=== PATIENT | male | born 1980 | race American Indian/Alaskan Native ===

== ENCOUNTER 2016-12-06 11:55 | Emergency (ER) | payer SELFPAY ==
[2016-12-06 12:20] VITALS: BP 124/77
--- NOTE | 2016-12-06 16:41 | Emergency Department Report ---
ED ENT HPI - General Chief complaint: Skin/Abscess/Foreign Body Stated complaint: POSS INSECT BITE/INFECTION Time Seen by Provider: 12/06/16 16:23 Source: patient Mode of arrival: Ambulatory Limitations: No Limitations - History of Present Illness Initial comments: PT states he has had a rash on his chin x 1 week. PT states he woke up with a spot that looked like a burn. PT states he thought that he got a spider bite when working. PT also thought that maybe he got an STD. PT denies new sexual partner. PT states the first spot had drained pus and slowly got worse. pt states he used a steroid cream and he thinks it started to get worse. PT states the area started to dry out and get scabs when he started cleansing it with hydrogen peroxide. complaint: other (rash to chin ) Onset/Timin -: Gradual, week(s) Location: other (chin) Severity: mild Quality: burning Consistency: other (pain improved, now feels irritated ) Improves with: other (hydrogen peroxide ) Worsens with: medication (steroid cream ) Associated Symptoms: denies: fever, pain with swallowing, sore throat - Related Data Previous Rx's Medication Instructions Recorded Last Taken Type Cephalexin [Keflex] 500 mg PO Q6HR #28 capsule 12/06/16 Unknown Rx Sulfamethoxazole/Trimethoprim 1 each PO BID #14 tablet 12/06/16 Unknown Rx [Bactrim DS TAB] Allergies Allergy/AdvReac Type Severity Reaction Status Date / Time No Known Allergies Allergy Unverified 12/06/16 12:15 ED Dental HPI - General Chief complaint: Skin/Abscess/Foreign Body Stated complaint: POSS INSECT BITE/INFECTION Time Seen by Provider: 12/06/16 16:23 Source: patient Mode of arrival: Ambulatory Limitations: No Limitations - Related Data Previous Rx's Medication Instructions Recorded Last Taken Type Cephalexin [Keflex] 500 mg PO Q6HR #28 capsule 12/06/16 Unknown Rx Sulfamethoxazole/Trimethoprim 1 each PO BID #14 tablet 12/06/16 Unknown Rx [Bactrim DS TAB] Allergies Allergy/AdvReac Type Severity Reaction Status Date / Time No Known Allergies Allergy Unverified 12/06/16 12:15 ED Review of Systems ROS: Stated complaint: POSS INSECT BITE/INFECTION Other details as noted in HPI Comment: All other systems reviewed and negative Constitutional: denies: fever ENT: denies: ear pain, throat pain Gastrointestinal: denies: abdominal pain, nausea, vomiting Genitourinary: denies: dysuria, discharge, testicular pain, testicular mass Skin: rash, change in color ED Past Medical Hx - Past Medical History Previous Medical History?: No - Surgical History Past Surgical History?: No - Social History Smoking Status: Current Every Day Smoker Substance Use Type: Alcohol - Medications Home Medications: Home Medications Medication Instructions Recorded Confirmed Last Taken Type Cephalexin [Keflex] 500 mg PO Q6HR #28 capsule 12/06/16 Unknown Rx Sulfamethoxazole/Trimethoprim 1 each PO BID #14 tablet 12/06/16 Unknown Rx [Bactrim DS TAB] ED Physical Exam - General Limitations: No Limitations General appearance: alert, in no apparent distress - Head Head exam: Present: atraumatic, normocephalic, normal inspection - ENT ENT exam: Present: mucous membranes moist, TM's normal bilaterally, normal external ear exam, other (post nasal drainage ) - Neck Neck exam: Present: normal inspection, full ROM. Absent: tenderness, meningismus, lymphadenopathy, thyromegaly - Respiratory Respiratory exam: Present: normal lung sounds bilaterally. Absent: respiratory distress - Cardiovascular Cardiovascular Exam: Present: regular rate, normal rhythm, normal heart sounds - GI/Abdominal GI/Abdominal exam: Present: soft. Absent: tenderness - Extremities Exam Extremities exam: Present: normal inspection, full ROM - Back Exam Back exam: Present: normal inspection, full ROM - Neurological Exam Neurological exam: Present: alert, oriented X3 - Psychiatric Psychiatric exam: Present: normal affect, normal mood - Skin Skin exam: Present: warm, dry, rash, erythema, other (folliculitis to chin, + surrounding erythema. no vesicles noted, scabs noted, no active drainage no palpable abscess. ) ED Course Vital Signs 12/06/16 12:16 Temperature 98.4 F Pulse Rate 62 Respiratory 17 Rate Blood Pressure 124/77 O2 Sat by Pulse 98 Oximetry - Reevaluation(s) Reevaluation #1: 12/06/16 16:51 PT aware that rash currently looks like skin infection. pt advised to stop steroid cream. PT aware that I do not see any vesicles on today's exam but pt encourage to follow up for hsv testing. - Pulse Oximetry Interpretation Digit-Finger Initial Pulse Oximetry Readin Actions Taken: none ED Medical Decision Making - Differential Diagnosis abscess, folliculitis, hsv Critical care attestation.: If time is entered above; I have spent that time in minutes in the direct care of this critically ill patient, excluding procedure time. ED Disposition Clinical Impression: Folliculitis Cellulitis Qualifiers: Site of cellulitis: face Qualified Code(s): L03.211 - Cellulitis of face Disposition: DISCHARGED TO HOME OR SELFCARE Is pt being admited?: No Does the pt Need Aspirin: No Condition: Stable Instructions: Folliculitis (ED) Additional Instructions: Follow up with the health dept for hsv testing Prescriptions: Cephalexin [Keflex] 500 mg PO Q6HR #28 capsule Sulfamethoxazole/Trimethoprim [Bactrim DS TAB] 1 each PO BID #14 tablet Referrals: PRIMARY CAREMD [Primary Care Provider] - 3-5 Days TINO PALACIOS MD [Staff Physician] - 3-5 Days [facility] [Outside] - 3-5 Days [facility] [Outside] - 3-5 Days Forms: Work/School Release Form(ED) Time of Disposition: 16:41
== END 2016-12-06 17:08 | disposition home or self-care (01) ==
LOC: ED 11:55
DX: L03.211 Cellulitis of face (principal); L73.9 Follicular disorder, unspecified; F17.200 Nicotine dependence, unspecified, uncomplicated
CPT/HCPCS: 99282

== ENCOUNTER 2022-02-03 21:23 | Inpatient (IN) | payer SELFPAY ==
[2022-02-03] MEDS ORDERED: IBUPROFEN 600 MG TAB PO ONE (21:42)
[2022-02-04] MEDS ORDERED: ACETAMINOPHEN 500 MG TAB PO ONE (06:58)
[2022-02-04] MEDS ORDERED: HYDROmorphone 1 MG/1 ML INJ IV ONE (08:21)
[2022-02-04] MEDS ORDERED: ONDANSETRON 4 MG/2 ML INJ IV ONE (08:21)
--- NOTE | 2022-02-04 08:22 | Emergency Department Report ---
ED General Adult HPI - General Chief complaint: Fever Stated complaint: CHEST PAIN AND SOB Time Seen by Provider: 02/04/22 07:59 Source: patient Mode of arrival: Wheelchair Limitations: No Limitations - History of Present Illness Initial comments: Patient presents with complaints of right lower chest/right upper abdominal pain x 2 days, sharp, radiating to his R back, 8/10, not worsened or relieved by anything. Endorses SOB, palpitations. Denies diaphoresis, leg swelling, pain in his calves, recent travel, immobilization, surgery, hospitalization, sex HRT use. Endorses nausea, non bloody, non bilious vomiting. Last BM was yesterday and formed. Endorses flatulence. Denies dysuria, frequency, urgency. Patient is a smoker Severity scale (0 -10): 8 - Related Data Previous Rx's Medication Instructions Recorded Last Taken Type Sulfamethoxazole/Trimethoprim 1 each PO BID #14 tablet 12/06/16 Unknown Rx [Bactrim DS TAB] cephALEXin [Keflex] 500 mg PO Q6HR #28 capsule 12/06/16 Unknown Rx Allergies Allergy/AdvReac Type Severity Reaction Status Date / Time No Known Allergies Allergy Unverified 12/06/16 12:15 ED Review of Systems ROS: Stated complaint: CHEST PAIN AND SOB Other details as noted in HPI Comment: All other systems reviewed and negative Constitutional: denies: chills, fever ED Past Medical Hx - Past Medical History Previous Medical History?: No - Social History Smoking Status: Unknown if ever smoked - Medications Home Medications: Home Medications Medication Instructions Recorded Confirmed Last Taken Type Sulfamethoxazole/Trimethoprim 1 each PO BID #14 tablet 12/06/16 Unknown Rx [Bactrim DS TAB] cephALEXin [Keflex] 500 mg PO Q6HR #28 capsule 12/06/16 Unknown Rx ED Physical Exam - General Limitations: No Limitations General appearance: alert, other (in acute pain) - Head Head exam: Present: atraumatic, normocephalic - Eye Eye exam: Present: PERRL, EOMI - ENT ENT exam: Present: mucous membranes moist, other (airway patent) - Neck Neck exam: Present: other (supple; no JVD) - Respiratory Respiratory exam: Present: other (fair air entry, prolonged expiratory phase, diffuse quiet expiratory wheezes, no use of accessory muscles of respiration) - Cardiovascular Cardiovascular Exam: Present: regular rate. Absent: rubs, gallop - GI/Abdominal GI/Abdominal exam: Present: other (soft; tender to palpation in epigastric region and RUQ; no involuntary guarding or rebound tenderness; positve Bergman's sign) - Extremities Exam Extremities exam: Present: other (no lower extremity edema; non tender [id number]; neg Jeaneth's sign bilaterally) - Back Exam Back exam: Present: full ROM. Absent: CVA tenderness (R), CVA tenderness (L) - Neurological Exam Neurological exam: Present: alert, oriented X3, CN II-XII intact. Absent: motor sensory deficit - Skin Skin exam: Present: warm, normal color ED Course Vital Signs 02/03/22 02/04/22 02/04/22 21:29 08:01 13:29 Temperature 102.8 F H 101.8 F H 99.5 F Pulse Rate 127 H 125 H 99 H Respiratory 18 22 Rate Blood Pressure 137/82 Blood Pressure 138/79 [Right] O2 Sat by Pulse 94 95 95 Oximetry ED Medical Decision Making - Lab Data Result diagrams: 02/04/22 08:29 02/04/22 08:29 Laboratory Tests 02/04/22 02/04/22 02/04/22 08:29 08:29 08:29 WBC 14.8 H RBC 5.31 H Hgb 15.6 H Hct 47.1 H MCV 89 MCH 29 MCHC 33 RDW 13.4 Plt Count 195 Lymph % (Auto) 5.1 L [place] % (Auto) 10.6 H Eos % (Auto) 0.1 Baso % (Auto) 0.3 Lymph # (Auto) 0.8 L [place] # (Auto) 1.6 H Eos # (Auto) 0.0 Baso # (Auto) 0.0 Seg Neutrophils % 83.9 H Seg Neutrophils # 12.4 H D-Dimer 995.34 H Sodium 133 L Potassium 3.4 L Chloride 101.2 Carbon Dioxide 18 L Anion Gap 17 BUN 11 Creatinine 0.9 Estimated GFR > 60 BUN/Creatinine Ratio 12 Glucose 115 H Lactic Acid Calcium 9.3 Total Bilirubin 1.40 H AST 30 ALT 95 H Alkaline Phosphatase 108 Troponin T < 0.010 Total Protein 7.9 Albumin 3.7 L Albumin/Globulin Ratio 0.9 Lipase SARS-CoV-2 (PCR) 02/04/22 02/04/22 02/04/22 08:29 08:29 10:00 WBC RBC Hgb Hct MCV MCH MCHC RDW Plt Count Lymph % (Auto) [place] % (Auto) Eos % (Auto) Baso % (Auto) Lymph # (Auto) [place] # (Auto) Eos # (Auto) Baso # (Auto) Seg Neutrophils % Seg Neutrophils # D-Dimer Sodium Potassium Chloride Carbon Dioxide Anion Gap BUN Creatinine Estimated GFR BUN/Creatinine Ratio Glucose Lactic Acid 1.00 Calcium Total Bilirubin AST ALT Alkaline Phosphatase Troponin T Total Protein Albumin Albumin/Globulin Ratio Lipase 8 L SARS-CoV-2 (PCR) Negative EKG #1 @ 21:34-> HYR 126, SR, nml HI, narrow QRS, LVH by R inb I, no significant ST elevations in contiguous leads CXR: R pleural effusion RUQ US: no acute abdominal process CTA chest: no PE; middle and lower lung infiltrates; large R pleural effusion CT abd/pelvis: no acute intra-abdominal process - Medical Decision Making Some orders were placed on 02/03/2022, under my name while I was not here. I did not request or give those verbal orders and IU am not responsible for their wanted or unwanted effects. Diff dz: likely 2/2 pneumonia with parapneumonic effusion and sepsis. PE, aortic dissection, biliary process ruled out. ACS, pyelonephritis unlikely. Received ibuprofen 600 mg PO x 1, dilaudid 1 mg IV x 1, zofran 4 mg IV x 1, levaquin 750 mg IV x 1, NS @ 125 ml/hr, solumedrol 125 mg IV x 1, albuterol 10 mg neb x 1, ipratropium 1 mg neb x 1. Critical care attestation.: If time is entered above; I have spent that time in minutes in the direct care of this critically ill patient, excluding procedure time. ED Disposition Clinical Impression: Sepsis, Pneumonia, Parapneumonic effusion, Reactive airway disease with acute exacerbation Disposition: ADMITTED INPATIENT Is pt being admited?: Yes Does the pt Need Aspirin: No Condition: Stable Instructions: Bacterial Pneumonia (ED) Time of Disposition: 13:36 (Patienty admitted to Dr. Montgomery. Sign out was given by me to the admitting physician. )
[2022-02-04] MEDS ORDERED: IPRATROPIUM 0.02% NEBU 2.5 ML IH STA (08:23)
[2022-02-04] MEDS ORDERED: ALBUTEROL 2.5 MG/3 ML NEBU IH STA (08:23)
[2022-02-04] MEDS ORDERED: methylPREDNISolone Sod Succinate 125 MG/2 ML INJ IV ONE (08:23)
[2022-02-04 08:47] LABS: Basophils % (Auto) 0.3 % (0.0-1.8); Eosinophils % (Auto) 0.1 % (0.0-4.3); Hematocrit 47.1 % (35.5-45.6); Hemoglobin 15.6 gm/dl (11.8-15.2); Lymphocytes # (Auto) 0.8 K/mm3 (1.2-5.4); Lymphocytes % (Auto) 5.1 % (13.4-35.0); Mean Corpuscular HGB Conc 33 % (32-34); Mean Corpuscular Volume 89 fl (84-94); Monocytes # (Auto) 1.6 K/mm3 (0.0-0.8); Monocytes % (Auto) 10.6 % (0.0-7.3); Platelet Count 195 K/mm3 (140-440); Red Blood Count 5.31 M/mm3 (3.65-5.03); Red Cell Distribution Width 13.4 % (13.2-15.2)
--- NOTE | 2022-02-04 08:58 | XRay Report ---
CHEST 1 VIEW INDICATION: Chest pain. COMPARISON: None FINDINGS: SUPPORT DEVICES: None. HEART: Within normal limits. LUNGS/PLEURA: Dense consolidation/effusion in the right lung base with minimal streaky left basilar a telectasis. ADDITIONAL FINDINGS: None. IMPRESSION: 1. Lung findings as above. Signer Name: John Madsen MD Signed: 02/04/2022 8:53 AM Workstation Name: [id number]
[2022-02-04 09:03] LABS: Alanine Aminotransferase 95 units/L (7-56); Albumin 3.7 g/dL (3.9-5); BUN/Creatinine Ratio 12; Blood Urea Nitrogen 11 mg/dL (9-20); Calcium 9.3 mg/dL (8.4-10.2); Hemolysis Index 9
--- NOTE | 2022-02-04 11:29 | Electrocardiograph Report ---
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
--- NOTE | 2022-02-04 12:12 | Ultrasound Report ---
LIMITED RUQ ABDOMINAL ULTRASOUND INDICATION: RUQ pain;. COMPARISON: No relevant prior imaging study available. FINDINGS: Pancreas: Poorly demonstrated. Abdominal Aorta: Normal size. IVC: No significant abnormality. Liver: The liver measures 15 cm in length. No significant abnormality. Normal hepatopedal blood flow in the main portal vein. Gallbladder: No significant abnormality. Bile ducts: No significant abnormality. Common bile duct measures 3 mm. Right kidney: No significant abnormality visualized.. Free fluid: None. Additional Findings: There is a trace right pleural effusion.. IMPRESSION: 1. No acute abnormality in the abdomen. 2. Trace right pleural effusion. Signer Name: John Madsen MD Signed: 02/04/2022 12:08 PM Workstation Name: [id number]
--- NOTE | 2022-02-04 14:21 | Cat Scan Report ---
CTA CHEST WITH CONTRAST INDICATION / CLINICAL INFORMATION: R sided chest pain; elevated [place]imer. TECHNIQUE: Axial CT images were obtained through the chest after injection of IV contrast. 3 plane [place] P and/or 3D reconstructions were produced. All CT scans at this location are performed using CT dose reduction for ALARA by means of automated exposure control. COMPARISON: None available. FINDINGS: Contrast bolus timing slightly suboptimal. The aorta is normal. Main pulmonary arteries appear patent . The more segmental and peripheral pulmonary arteries are not as well-seen. There is dense opacity w ithin the right mid and right lower lung with atelectasis density in right effusion. Visualized porti ons of the upper abdomen appear normal. Mild opacities in the left lower lung are noted as well. ADDITIONAL FINDINGS: None. UPPER ABDOMEN: No acute findings. SKELETAL STRUCTURES: No significant osseous abnormality. IMPRESSION: 1. No definite obstructing central PTE. Contrast bolus timing is suboptimal with some mixing of contr ast within the main pulmonary arteries and branches. Evaluation is limited by the bolus timing. 2. Right middle and right lower lung atelectasis/infiltrates with right effusion Signer Name: Clark Matos MD Signed: 02/04/2022 2:17 PM Workstation Name: [id number]
--- NOTE | 2022-02-04 14:27 | Cat Scan Report ---
CT ABDOMEN AND PELVIS WITH CONTRAST HISTORY: R sided abdominal pain. COMPARISON: None. TECHNIQUE: CT images of the abdomen and pelvis were obtained following administration of intravenous contrast. All CT scans at this location are performed using CT dose reduction for ALARA by means of automated exposure control. CONTRAST: 100 ml of intravenous contrast administered. FINDINGS: Lungs/bones: There is right lower lung infiltrate and atelectasis. Right effusion Abdomen/pelvis: The liver, spleen, adrenal glands, pancreas, gallbladder and upper GI tract appear n ormal. Bilateral kidneys appear normal. No bowel obstruction is identified. Appendix appears normal. No free fluid in the abdomen or pelvis. Portal vein is patent. No dominant adenopathy is seen. IMPRESSION: 1. Right lower lung infiltrate/atelectasis and effusion 2. No acute findings are seen in the abdomen or pelvis. Signer Name: Clark Matos MD Signed: 02/04/2022 2:22 PM Workstation Name: [id number]
[2022-02-04] MEDS ORDERED: SODIUM CHLORIDE 0.9% 1000 ML 1,000 ML IV ONE (14:29)
[2022-02-04] MEDS ORDERED: MORPHINE 2 MG/1 ML INJ IV PRN (15:41)
[2022-02-04] MEDS ORDERED: ONDANSETRON 4 MG/2 ML INJ IV PRN (15:41)
[2022-02-04] MEDS ORDERED: METOCLOPRAMIDE 10 MG/2 ML INJ IV PRN (15:41)
[2022-02-04] MEDS ORDERED: SODIUM CHLORIDE 0.9% 1000 ML 1,000 ML IV SCH (15:45)
--- NOTE | 2022-02-04 16:00 | History and Physical Report ---
History of Present Illness Date of examination: 02/04/22 Date of admission: 02/04/2022 Chief complaint: Right-sided chest pain for the last 2 to 3 days Some shortness of breath for the last 2 to 3 days History of present illness: 41-year-old -[place] male with no significant past medical history presents with 2 to 3 days of sharp right infra axillary pain more with inspiration. Also some shortness of breath. Also low-grade fever. Temperature in the emergency room 102 approximately. Patient has cough productive of mucoid sputum. No chills. No recent alcohol intake or passing out. - Past Medical History -- No -Surgical history --None. - Social History --Smoking Status: Yes -Family history -- HTN Review of Systems ROS: Constitutional fever present. HEENT no sore throat no post nasal drip no diplopia Neck no neck stiffness no lymph gland enlargement Chest and lungs shortness of breath and cough present. Right-sided chest pain present in the infra axillary region. Increases with inspiration. 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 Skin no rash no itching Psychiatric no depression no homicidal or suicidal tendencies Hematologic no lymphedema or bruising Endocrine no polydipsia no polyuria no cold intolerance no heat intolerance Medications and Allergies Allergies Allergy/AdvReac Type Severity Reaction Status Date / Time No Known Allergies Allergy Unverified 12/06/16 12:15 Home Medications Medication Instructions Recorded Confirmed Last Taken Type Sulfamethoxazole/Trimethoprim 1 each PO BID #14 tablet 12/06/16 Unknown Rx [Bactrim DS TAB] cephALEXin [Keflex] 500 mg PO Q6HR #28 capsule 12/06/16 Unknown Rx Active Meds: Active Medications Sodium Chloride (Nacl 0.9% 1000 Ml) 1,000 mls @ 125 mls/hr IV ONCE ONE Stop: 02/04/22 22:28 Exam - Constitutional Vitals: Temp Pulse Resp BP Pulse Ox 99.5 F 99 H 22 138/79 95 02/04/22 13:29 02/04/22 13:29 02/04/22 08:01 02/04/22 08:01 02/04/22 13:29 General appearance: Present: mild distress, well-nourished - EENT Eyes: Present: PERRL ENT: hearing intact, clear oral mucosa - Neck Neck: Present: supple, normal ROM - Respiratory Respiratory effort: normal Respiratory: right: diminished (Diminished air entry right infrascapular), bilateral: CTA - Cardiovascular Heart rate: 120 Rhythm: regular Heart Sounds: Present: S1 & S2. Absent: rub, click - Extremities Extremities: pulses symmetrical, No edema Peripheral Pulses: within normal limits - Abdominal General gastrointestinal: Present: soft, non-tender, non-distended, normal bowel sounds Male genitourinary: Present: normal - Integumentary Integumentary: Present: clear, warm, dry - Musculoskeletal Musculoskeletal: gait normal, strength equal bilaterally - Psychiatric Psychiatric: appropriate mood/affect, intact judgment & insight - Neurologic Neurologic: CNII-XII intact, moves all extremities - Allied Health Allied health notes reviewed: nursing, case management HEART Score - HEART Score Troponin: Troponin T < 0.010 ng/mL (0.00-0.029) 02/04/22 08:29 Results - Labs CBC & Chem 7: 02/04/22 08:29 02/04/22 08:29 Labs: Laboratory Last Values WBC 14.8 K/mm3 (4.5-11.0) H 02/04/22 08:29 RBC 5.31 M/mm3 (3.65-5.03) H 02/04/22 08:29 Hgb 15.6 gm/dl (11.8-15.2) H 02/04/22 08:29 Hct 47.1 % (35.5-45.6) H 02/04/22 08:29 MCV 89 fl (84-94) 02/04/22 08:29 MCH 29 pg (28-32) 02/04/22 08:29 MCHC 33 % (32-34) 02/04/22 08:29 RDW 13.4 % (13.2-15.2) 02/04/22 08:29 Plt Count 195 K/mm3 (140-440) 02/04/22 08:29 Lymph % (Auto) 5.1 % (13.4-35.0) L 02/04/22 08:29 [place] % (Auto) 10.6 % (0.0-7.3) H 02/04/22 08:29 Eos % (Auto) 0.1 % (0.0-4.3) 02/04/22 08:29 Baso % (Auto) 0.3 % (0.0-1.8) 02/04/22 08:29 Lymph # (Auto) 0.8 K/mm3 (1.2-5.4) L 02/04/22 08:29 [place] # (Auto) 1.6 K/mm3 (0.0-0.8) H 02/04/22 08:29 Eos # (Auto) 0.0 K/mm3 (0.0-0.4) 02/04/22 08:29 Baso # (Auto) 0.0 K/mm3 (0.0-0.1) 02/04/22 08: Seg Neutrophils % 83.9 % (40.0-70.0) H 02/04/22 08: Seg Neutrophils # 12.4 K/mm3 (1.8-7.7) H 02/04/22 08:29 D-Dimer 995.34 ng/mlDDU (0-234) H 02/04/22 08:29 Sodium 133 mmol/L (137-145) L 02/04/22 08:29 Potassium 3.4 mmol/L (3.6-5.0) L 02/04/22 08:29 Chloride 101.2 mmol/L (98-107) 02/04/22 08: Carbon Dioxide 18 mmol/L (22-30) L 02/04/22 08:29 Anion Gap 17 mmol/L 02/04/22 08:29 BUN 11 mg/dL (9-20) 02/04/22 08:29 Creatinine 0.9 mg/dL (0.8-1.3) 02/04/22 08:29 Estimated GFR > 60 ml/min 02/04/22 08:29 BUN/Creatinine Ratio 12 % 02/04/22 08: Glucose 115 mg/dL (75-100) H 02/04/22 08:29 Lactic Acid 1.00 mmol/L (0.7-2.0) 02/04/22 08:29 Calcium 9.3 mg/dL (8.4-10.2) 02/04/22 08:29 Total Bilirubin 1.40 mg/dL (0.1-1.2) H 02/04/22 08:29 AST 30 units/L (5-40) 02/04/22 08:29 ALT 95 units/L (7-56) H 02/04/22 08:29 Alkaline Phosphatase 108 units/L (35-129) 02/04/22 08:29 Troponin T < 0.010 ng/mL (0.00-0.029) 02/04/22 08:29 Total Protein 7.9 g/dL (6.3-8.2) 02/04/22 08:29 Albumin 3.7 g/dL (3.9-5) L 02/04/22 08:29 Albumin/Globulin Ratio 0.9 % 02/04/22 08:29 Lipase 8 units/L (13-60) L 02/04/22 08:29 SARS-CoV-2 (PCR) Negative (Negative) 02/04/22 10:00 Short CBC 02/04/22 Range/Units 08:29 WBC 14.8 H (4.5-11.0) K/mm3 Hgb 15.6 H (11.8-15.2) gm/dl Hct 47.1 H (35.5-45.6) % Plt Count 195 (140-440) K/mm3 BMP 02/04/22 08:29 Sodium 133 L Potassium 3.4 L Chloride 101.2 Carbon Dioxide 18 L BUN 11 Creatinine 0.9 Glucose 115 H Calcium 9.3 Cardiac Enzymes 02/04/22 Range/Units 08:29 Troponin T < 0.010 (0.00-0.029) ng/mL Liver Function 02/04/22 Range/Units 08:29 Total Bilirubin 1.40 H (0.1-1.2) mg/dL AST 30 (5-40) units/L ALT 95 H (7-56) units/L Alkaline Phosphatase 108 (35-129) units/L Albumin 3.7 L (3.9-5) g/dL Urine 02/04/22 Range/Units Unknown Urine Color [place] (Yellow) Urine pH 5.0 (5.0-7.0) Ur Specific [place] 1.031 H (1.003-1.030) Urine Protein 100 mg/dl (Negative) mg/dL Urine Glucose (UA) Neg (Negative) mg/dL Microbiology: Microbiology 02/04/22 08:29 Peripheral/Venous Blood Culture - Preliminary Culture in Progress 02/04/22 08:29 Peripheral/Venous Blood Culture - Preliminary Culture in Progress - Imaging and Cardiology EKG: report reviewed Chest x-ray: report reviewed CT scan - chest: report reviewed Imaging and Cardiology: EKG Sinus tachycardia No previous EKG available for comparison Heart rate of 124/min Chest x-ray Dense consolidation/left effusion in the right lung base with minimal streaky left basilar atelectasis Chest CTA No definite obstructing central pulmonary thromboembolism. Right middle and right lower lung atelectasis/infiltrates with right effusion. Right upper quadrant ultrasound Trace right pleural effusion Abdominal CAT scan Right lower lung infiltrate/atelectasis and effusion No acute findings were seen in the abdomen or pelvis Assessment and Plan Advance Directives: Yes (Full code) VTE prophylaxis?: Chemical Plan of care discussed with patient/family: Yes - Patient Problems (1) Systemic inflammatory response syndrome Current Visit: Yes Status: Acute Plan to address problem: Clinical picture and labs consistent with Sirs. Patient has temperature 102.8, elevated white blood cell count (2) Right lower lobe pneumonia Current Visit: Yes Status: Acute Plan to address problem: Patient has right lower lobe consolidation consistent with community-acquired pneumonia No aspiration pneumonia Patient initiated on IV Zithromax and IV Rocephin to cover atypicals atypicals DuoNebs as needed (3) Parapneumonic effusion Current Visit: Yes Status: Acute Plan to address problem: Patient may need thoracentesis We will follow-up on the x-rays Pulmonary consult requested (4) Hyponatremia Current Visit: Yes Status: Acute Plan to address problem: Mild IV normal saline for now (5) Hypokalemia Current Visit: Yes Status: Acute Plan to address problem: Potassium supplemented (6) Malnutrition Current Visit: Yes Status: Chronic Qualifiers: Protein-calorie malnutrition severity: mild Plan to address problem: Albumin of 3.7 Mild Dietary supplements (7) Transaminitis Current Visit: Yes Status: Acute Plan to address problem: Mild Should self resolve (8) Polycythemia due to fall in plasma volume Current Visit: Yes Status: Acute Plan to address problem: IV fluids for now (9) DVT prophylaxis Current Visit: Yes Status: Acute Plan to address problem: On heparin and GI prophylaxis (10) Advance care planning Current Visit: Yes Status: Acute Plan to address problem: Disease education conducted, care plan discussed, diagnosis discussed, prognosis discussed. Patient acknowledges understanding and agree with care plan. +30 minutes.
[2022-02-04 17:45] LABS: Bilirubin,Urine NEG (Negative); Blood,Urine MOD (Negative); Color,Urine Amber (Yellow)
[2022-02-04 17:54] LABS: Mucus,Urine 3+ /HPF; Sperm,Urine FEW /HPF (NP)
[2022-02-04] MEDS ORDERED: POTASSIUM CHLORIDE ER 20 MEQ TAB PO ONE (18:38)
[2022-02-04] MEDS: HEPARIN 5,000 UNIT/1 ML VIAL SUB-Q SCH ×2 (18:57→21:51)
[2022-02-04] MEDS: cefTRIAXone/NS 2 GM/100 ML 2 GM/100 ML BAG IV SCH (20:05)
[2022-02-04] MEDS: AZITHROMYCIN/NS 500 MG/250 ML 500 MG/250 ML BAG IV SCH (22:00)
[2022-02-05 05:10] LABS: Basophils % (Auto) 0.2 % (0.0-1.8); Hematocrit 40.7 % (35.5-45.6); Hemoglobin 13.5 gm/dl (11.8-15.2); Lymphocytes # (Auto) 0.6 K/mm3 (1.2-5.4); Lymphocytes % (Auto) 3.8 % (13.4-35.0); Mean Corpuscular HGB Conc 33 % (32-34); Mean Corpuscular Volume 89 fl (84-94); Monocytes # (Auto) 1.2 K/mm3 (0.0-0.8); Monocytes % (Auto) 7.2 % (0.0-7.3); Platelet Count 191 K/mm3 (140-440)
[2022-02-05 05:30] LABS: Alanine Aminotransferase 58 units/L (7-56); Albumin 3.6 g/dL (3.9-5); BUN/Creatinine Ratio 11; Blood Urea Nitrogen 12 mg/dL (9-20); Calcium 8.9 mg/dL (8.4-10.2); Hemolysis Index 1
[2022-02-05] MEDS: cefTRIAXone/NS 2 GM/100 ML 2 GM/100 ML BAG IV SCH (10:17)
[2022-02-05] MEDS: HEPARIN 5,000 UNIT/1 ML VIAL SUB-Q SCH ×2 (10:19→22:35)
--- NOTE | 2022-02-05 10:40 | Electrocardiograph Report ---
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
--- NOTE | 2022-02-05 11:38 | Progress Note ---
Assessment and Plan Assessment and plan: #Community-acquired pneumonia #Parapneumonic effusion #Sepsis secondary to pneumonia WBC 14.8--> 16.6 and heart rate 103 and was afebrile to 102.8 on admission Continue Rocephin 1 g daily and p.o. azithromycin 500 mg daily x5 days for community-acquired pneumonia. Pending thoracentesis and fluid examination of right pleural effusion Pulmonology consulted; pending recs #Elevated D-dimer D-dimer 995 CT angio chest unremarkable for pulmonary embolism. Possible inflammatory marker. Ordering bilateral lower extremity venous Dopplers to rule out DVT. #Nonanion gap metabolic acidosisimproving Bicarb 18--> 21 Likely secondary to infection in the setting of right pleural effusion. Continue to monitor. #Elevated transaminasesimproving ALT 95--> 58 Continue to monitor. No need for medical intervention at this time. #Hyponatremiaresolved Sodium 133--> 139 #Hypokalemiaresolved Potassium 3.4--> 3.6 #Mild protein caloric malnutrition Albumin 3.6 Starting dietary supplementation #Advanced care planning -Disease education conducted, care plan discussed, diagnoses discussed, prognosis discussed, and patient acknowledges understanding with care plan -Time: +30 min Disposition Plan: Continue medical management Total Time Spent with Patient (Minutes): 45 minutes History Interval history: No acute events overnight. Hospitalist Physical - Constitutional Vitals: Temp Pulse Resp BP Pulse Ox 98.4 F 103 H 19 132/73 99 02/05/22 05:32 02/05/22 05:32 02/05/22 05:32 02/05/22 05:32 02/05/22 08:46 General appearance: Present: no acute distress, well-nourished - EENT Eyes: Present: PERRL, EOM intact ENT: hearing intact, clear oral mucosa, dentition normal - Neck Neck: Present: supple, normal ROM - Respiratory Respiratory effort: normal Respiratory: bilateral: diminished (Right lower lobe.) - Cardiovascular Rhythm: regular Heart Sounds: Present: S1 & S2 - Extremities Extremities: no ischemia, pulses intact, pulses symmetrical, No edema, normal temperature, normal color, Full ROM Peripheral Pulses: within normal limits - Abdominal General gastrointestinal: soft, non-tender, non-distended, normal bowel sounds - Integumentary Integumentary: Present: clear, warm, dry - Psychiatric Psychiatric: appropriate mood/affect, intact judgment & insight, memory intact, cooperative - Neurologic Neurologic: CNII-XII intact, moves all extremities - Allied Health Allied health notes reviewed: nursing HEART Score - HEART Score Troponin: Troponin T < 0.010 ng/mL (0.00-0.029) 02/04/22 08:29 Results - Labs CBC & Chem 7: 02/05/22 04:06 02/05/22 04:06 Labs: Laboratory Last Values WBC 16.6 K/mm3 (4.5-11.0) H 02/05/22 04:06 RBC 4.60 M/mm3 (3.65-5.03) 02/05/22 04:06 Hgb 13.5 gm/dl (11.8-15.2) 02/05/22 04:06 Hct 40.7 % (35.5-45.6) D 02/05/22 04:06 MCV 89 fl (84-94) 02/05/22 04:06 MCH 29 pg (28-32) 02/05/22 04:06 MCHC 33 % (32-34) 02/05/22 04:06 RDW 13.0 % (13.2-15.2) L 02/05/22 04:06 Plt Count 191 K/mm3 (140-440) 02/05/22 04:06 Lymph % (Auto) 3.8 % (13.4-35.0) L 02/05/22 04:06 [place] % (Auto) 7.2 % (0.0-7.3) 02/05/22 04:06 Eos % (Auto) 0.0 % (0.0-4.3) 02/05/22 04:06 Baso % (Auto) 0.2 % (0.0-1.8) 02/05/22 04:06 Lymph # (Auto) 0.6 K/mm3 (1.2-5.4) L 02/05/22 04:06 [place] # (Auto) 1.2 K/mm3 (0.0-0.8) H 02/05/22 04:06 Eos # (Auto) 0.0 K/mm3 (0.0-0.4) 02/05/22 04:06 Baso # (Auto) 0.0 K/mm3 (0.0-0.1) 02/05/22 04:06 Seg Neutrophils % 88.8 % (40.0-70.0) H 02/05/22 04:06 Seg Neutrophils # 14.7 K/mm3 (1.8-7.7) H 02/05/22 04:06 D-Dimer 995.34 ng/mlDDU (0-234) H 02/04/22 08:29 Sodium 139 mmol/L (137-145) 02/05/22 04:06 Potassium 3.6 mmol/L (3.6-5.0) 02/05/22 04:06 Chloride 104.8 mmol/L (98-107) 02/05/22 04:06 Carbon Dioxide 21 mmol/L (22-30) L 02/05/22 04:06 Anion Gap 17 mmol/L 02/05/22 04:06 BUN 12 mg/dL (9-20) 02/05/22 04:06 Creatinine 1.1 mg/dL (0.8-1.3) 02/05/22 04:06 Estimated GFR > 60 ml/min 02/05/22 04:06 BUN/Creatinine Ratio 11 % 02/05/22 04:06 Glucose 130 mg/dL (75-100) H 02/05/22 04:06 Lactic Acid 1.00 mmol/L (0.7-2.0) 02/04/22 08:29 Calcium 8.9 mg/dL (8.4-10.2) 02/05/22 04:06 Total Bilirubin 0.40 mg/dL (0.1-1.2) 02/05/22 04:06 AST 13 units/L (5-40) 02/05/22 04:06 ALT 58 units/L (7-56) H 02/05/22 04:06 Alkaline Phosphatase 85 units/L (35-129) 02/05/22 04:06 Troponin T < 0.010 ng/mL (0.00-0.029) 02/04/22 08:29 Total Protein 7.0 g/dL (6.3-8.2) 02/05/22 04:06 Albumin 3.6 g/dL (3.9-5) L 02/05/22 04:06 Albumin/Globulin Ratio 1.1 % 02/05/22 04:06 Lipase 8 units/L (13-60) L 02/04/22 08:29 Urine Color [place] (Yellow) 02/04/22 Unknown Urine Turbidity Clear (Clear) 02/04/22 Unknown Urine pH 5.0 (5.0-7.0) 02/04/22 Unknown Ur Specific [place] 1.031 (1.003-1.030) H 02/04/22 Unknown Urine Protein 100 mg/dl mg/dL (Negative) 02/04/22 Unknown Urine Glucose (UA) Neg mg/dL (Negative) 02/04/22 Unknown Urine Ketones 20 mg/dL (Negative) 02/04/22 Unknown Urine Blood Mod (Negative) 02/04/22 Unknown Urine Nitrite Neg (Negative) 02/04/22 Unknown Urine Bilirubin Neg (Negative) 02/04/22 Unknown Urine Urobilinogen 4.0 mg/dL (<2.0) 02/04/22 Unknown Ur Leukocyte Esterase Neg (Negative) 02/04/22 Unknown Urine WBC (Auto) 7.0 /HPF (0.0-6.0) H 02/04/22 Unknown Urine RBC (Auto) 20.0 /HPF (0.0-6.0) 02/04/22 Unknown Urine Mucus 3+ /HPF 02/04/22 Unknown Urine Sperm Few /HPF (FILLING LAYER UP) 02/04/22 Unknown SARS-CoV-2 (PCR) Negative (Negative) 02/04/22 10:00 Microbiology: Microbiology 02/04/22 08:29 Peripheral/Venous Blood Culture - Preliminary Culture in Progress 02/04/22 08:29 Peripheral/Venous Blood Culture - Preliminary Culture in Progress [place]/IV: Voiding Method Toilet Active Medications - Current Medications Current Medications: Generic Name Dose Route Start Last Admin Trade Name Freq PRN Reason Stop Dose Admin Acetaminophen 650 mg 02/04/22 15:41 Acetaminophen 325 Mg Tab PO Q4H PRN Pain MILD(1-3)/Fever >100.5/MOTA Heparin Sodium (Porcine) 5,000 unit 02/04/22 16:00 02/05/22 10:19 Heparin 5,000 Unit/1 Ml Vial SUB-Q 5,000 unit Q12HR NATHAN Administration Azithromycin 500 mg in 250 mls @ 250 mls/hr 02/04/22 16:00 02/04/22 22:00 Zithromax/Ns IV 02/09/22 15:59 250 mls/hr Q24H NATHAN Administration Ceftriaxone Sodium 2 gm in 100 mls @ 200 mls/hr 02/04/22 16:00 02/05/22 10:17 Rocephin/Ns 2 Gm/100 Ml IV 02/09/22 15:59 200 mls/hr Q24HR NATHAN Administration Protocol Metoclopramide HCl 10 mg 02/04/22 15:41 Metoclopramide 10 Mg/2 Ml Inj IV Q6H PRN Nausea And Vomiting Morphine Sulfate 2 mg 02/04/22 15:41 02/04/22 20:30 Morphine 2 Mg/1 Ml Inj IV 2 mg Q4H PRN Administration Pain, Moderate (4-6) Ondansetron HCl 4 mg 02/04/22 15:41 Ondansetron 4 Mg/2 Ml Inj IV Q8H PRN Nausea And Vomiting Oxycodone/Acetaminophen 1 tab 02/04/22 15:41 Oxycodone /Acetaminophen 5-325mg Tab PO Q6H PRN Pain, Moderate (4-6) Sodium Chloride 10 ml 02/04/22 22:00 02/05/22 10:18 Sodium Chloride 0.9% 10 Ml Flush Syringe IV 10 ml BID NATHAN Administration Sodium Chloride 10 ml 02/04/22 15:41 Sodium Chloride 0.9% 10 Ml Flush Syringe IV PRN PRN LINE FLUSH
[2022-02-05] MEDS: AZITHROMYCIN/NS 500 MG/250 ML 500 MG/250 ML BAG IV SCH (16:00)
[2022-02-05] MEDS: oxyCODONE /ACETAMINOPHEN 5-325MG TAB PO PRN (17:26)
[2022-02-06 05:32] LABS: Basophils % (Auto) 0.2 % (0.0-1.8); Eosinophils % (Auto) 0.1 % (0.0-4.3); Hematocrit 41.4 % (35.5-45.6); Hemoglobin 13.5 gm/dl (11.8-15.2); Lymphocytes # (Auto) 1.9 K/mm3 (1.2-5.4); Lymphocytes % (Auto) 17.2 % (13.4-35.0); Mean Corpuscular HGB Conc 33 % (32-34); Mean Corpuscular Volume 89 fl (84-94); Monocytes # (Auto) 1.1 K/mm3 (0.0-0.8); Monocytes % (Auto) 9.9 % (0.0-7.3); Platelet Count 200 K/mm3 (140-440); Red Blood Count 4.65 M/mm3 (3.65-5.03); Red Cell Distribution Width 13.3 % (13.2-15.2)
[2022-02-06 05:52] LABS: BUN/Creatinine Ratio 16; Blood Urea Nitrogen 14 mg/dL (9-20); Calcium 8.8 mg/dL (8.4-10.2); Hemolysis Index 1
[2022-02-06] MEDS ORDERED: POTASSIUM CHLORIDE ER 20 MEQ TAB PO NR (08:00)
[2022-02-06] MEDS: cefTRIAXone/NS 2 GM/100 ML 2 GM/100 ML BAG IV SCH (09:50)
[2022-02-06 10:04] LABS: INR 1.03 (0.87-1.13)
[2022-02-06] MEDS: HEPARIN 5,000 UNIT/1 ML VIAL SUB-Q SCH ×2 (11:53→22:26)
[2022-02-06] MEDS ORDERED: LIDOCAINE (1%) 10 MG/1 ML VIAL 20 ML MDV ONE (14:07)
--- NOTE | 2022-02-06 15:59 | XRay Report ---
CHEST 1 VIEW INDICATION / CLINICAL INFORMATION: POST THORACENTSIS STUDY TIME: 1533 COMPARISON: 02/04/2022 FINDINGS: SUPPORT DEVICES: None HEART / MEDIASTINUM: No significant abnormality. LUNGS / PLEURA: Right pleural effusion is again seen and appears mildly more prominent. Atelectasis a nd infiltrate in the right base. Mildly worse. Left lung field is clear. No pneumothorax. ADDITIONAL FINDINGS: No significant additional findings. Signer Name: Sae Dee MD Signed: 02/06/2022 3:54 PM Workstation Name: [id number]
[2022-02-06] MEDS: AZITHROMYCIN/NS 500 MG/250 ML 500 MG/250 ML BAG IV SCH (16:02)
[2022-02-06] MEDS: oxyCODONE /ACETAMINOPHEN 5-325MG TAB PO PRN (17:16)
--- NOTE | 2022-02-06 17:22 | Ultrasound Report ---
ATTEMPTED ULTRASOUND-GUIDED LEFT THORACENTESIS INDICATION: Pneumonia, small pleural effusion CT, requested laboratory evaluation of fluid COMPARISON: CTA chest 02/04/2022 Consent: Procedure was discussed at length with the patient in advance. Possible risks and benefits w ere discussed including pneumothorax, bleeding, and infection. Opportunity for questions was given. P atlakia reported no pertinent allergies and is not on anticoagulant therapy. Patient gave informed con sent to the procedure. PROCEDURE: Timeout was performed. In a sitting position and with a posterior approach, ultrasound was used to localize loculated pleural fluid in the mid right posterior chest. There appear to be multip le loculations and the largest was selected though this is still a small collection. Site was prepare d and procedure was performed with aseptic technique and generous local anesthesia with 1% lidocaine. . Because of the small collection, only a diagnostic thoracentesis was attempted using a 22-gauge sp inal needle. The needle was directed into the appropriate depth with aspiration attempted but despite several attempts including use of ultrasound guidance no fluid of significance could be withdrawn. P rocedure was then terminated. Post procedure chest x-ray was then performed showing no pneumothorax o r other obvious complication. Patient tolerated the procedure well and was discharged to the floor i n good condition. Complications: No significant complications occurred. Summary: Attempted but ultimately unsuccessful ultrasound-guided left thoracentesis. I suspect the fl uid is too thick for aspiration through a thin needle and larger needle size was felt prohibited due to the small size of the available loculated collection. If volume of pleural fluid increases, this c ould be attempted again. Signer Name: Sae Dee MD Signed: 02/06/2022 5:18 PM Workstation Name: [id number]
[2022-02-06] MEDS: ACETAMINOPHEN 325 MG TAB PO PRN (22:30)
[2022-02-07] MEDS: oxyCODONE /ACETAMINOPHEN 5-325MG TAB PO PRN ×3 (00:26→15:41)
[2022-02-07 06:26] LABS: BUN/Creatinine Ratio 11; Blood Urea Nitrogen 10 mg/dL (9-20); Calcium 8.8 mg/dL (8.4-10.2); Hemolysis Index 3
[2022-02-07] MEDS: cefTRIAXone/NS 2 GM/100 ML 2 GM/100 ML BAG IV SCH (09:02)
[2022-02-07] MEDS: HEPARIN 5,000 UNIT/1 ML VIAL SUB-Q SCH (09:03)
--- NOTE | 2022-02-07 12:35 | Consultation ---
History of Present Illness Consult date: 02/07/22 Requesting physician: NEREIDA BROWN - History of present illness History of present illness: This is a 41-year-old male patient admitted with shortness of breath fever chills and elevated white count 16,000. Chest x-ray is positive for an empyema. CT scan of the chest also supports an empyema of the right side potential loculations are visualized. Attempted drainage with IR and ultrasound guidance failed. Consultation at this time is for a larger bore chest tube for potential drainage of thick purulent material. Patient notes that he is feeling better at this time. He notes that he has had a prior episode approximately a month ago while he was in [place] with the same chest pain shortness of breath that cleared spontaneously without being seen by a doctor. Patient is not sure that he wants a chest tube at this time. Medications and Allergies Allergies Allergy/AdvReac Type Severity Reaction Status Date / Time No Known Allergies Allergy Unverified 12/06/16 12:15 Home Medications Medication Instructions Recorded Confirmed Last Taken Type No Known Home Medications [No 02/05/22 02/05/22 Unknown History Reported Home Medications] Active Meds: Active Medications Acetaminophen (Acetaminophen 325 Mg Tab) 650 mg PO Q4H PRN PRN Reason: Pain MILD(1-3)/Fever >100.5/MOTA Last Admin: 02/06/22 22:30 Dose: 650 mg Azithromycin (Zithromax/Ns) 500 mg in 250 mls @ 250 mls/hr IV Q24H NATHAN Stop: 02/09/22 15:59 Last Admin: 02/06/22 16:02 Dose: 250 mls/hr Ceftriaxone Sodium (Rocephin/Ns 2 Gm/100 Ml) 2 gm in 100 mls @ 200 mls/hr IV Q24HR [facility]; Protocol Stop: 02/09/22 15:59 Last Admin: 02/07/22 09:02 Dose: 200 mls/hr Metoclopramide HCl (Metoclopramide 10 Mg/2 Ml Inj) 10 mg IV Q6H PRN PRN Reason: Nausea And Vomiting Morphine Sulfate (Morphine 2 Mg/1 Ml Inj) 2 mg IV Q4H PRN PRN Reason: Pain, Moderate (4-6) Last Admin: 02/04/22 20:30 Dose: 2 mg Ondansetron HCl (Ondansetron 4 Mg/2 Ml Inj) 4 mg IV Q8H PRN PRN Reason: Nausea And Vomiting Oxycodone/Acetaminophen (Oxycodone /Acetaminophen 5-325mg Tab) 1 tab PO Q6H PRN PRN Reason: Pain, Moderate (4-6) Last Admin: 02/07/22 06:11 Dose: 1 tab Sodium Chloride (Sodium Chloride 0.9% 10 Ml Flush Syringe) 10 ml IV BID NATHAN Last Admin: 02/07/22 09:03 Dose: 10 ml Sodium Chloride (Sodium Chloride 0.9% 10 Ml Flush Syringe) 10 ml IV PRN PRN PRN Reason: LINE FLUSH Exam Vital Signs Temp Pulse Resp BP Pulse Ox 102.8 F H 127 H 18 137/82 94 02/03/22 21:29 02/03/22 21:29 02/03/22 21:29 02/03/22 21:29 02/03/22 21:29 - General physical appearance Positive: well developed - Eyes Positive: PERRL - Neck Positive: no masses, no bruits, trachea midline - Respiratory Positive: other (Decreased breath sounds right side. Consistent with right-sided empyema.) - Cardiovascular Rhythm: regular - Extremities Extremities: no ischemia, No edema Peripheral Pulses: within normal limits - Abdomen Abdomen: Present: soft. Absent: tender - Integumentary no rash - Neurologic Neurologic: alert and oriented to time, place and person, motor strength and sensation are grossly intact, CN II-XII intact Results - Labs 02/06/22 04:12 02/07/22 05:44 Abnormal lab results 02/07/22 Range/Units 05:44 Glucose 106 H (75-100) mg/dL Diabetes panel 02/07/22 Range/Units 05:44 Sodium 138 (137-145) mmol/L Potassium 3.8 (3.6-5.0) mmol/L Chloride 102.3 (98-107) mmol/L Carbon Dioxide 25 (22-30) mmol/L BUN 10 (9-20) mg/dL Creatinine 0.9 (0.8-1.3) mg/dL Glucose 106 H (75-100) mg/dL Calcium 8.8 (8.4-10.2) mg/dL Calcium panel 02/07/22 Range/Units 05:44 Calcium 8.8 (8.4-10.2) mg/dL Pituitary panel 02/07/22 Range/Units 05:44 Sodium 138 (137-145) mmol/L Potassium 3.8 (3.6-5.0) mmol/L Chloride 102.3 (98-107) mmol/L Carbon Dioxide 25 (22-30) mmol/L BUN 10 (9-20) mg/dL Creatinine 0.9 (0.8-1.3) mg/dL Glucose 106 H (75-100) mg/dL Calcium 8.8 (8.4-10.2) mg/dL Adrenal panel 02/07/22 Range/Units 05:44 Sodium 138 (137-145) mmol/L Potassium 3.8 (3.6-5.0) mmol/L Chloride 102.3 (98-107) mmol/L Carbon Dioxide 25 (22-30) mmol/L BUN 10 (9-20) mg/dL Creatinine 0.9 (0.8-1.3) mg/dL Glucose 106 H (75-100) mg/dL Calcium 8.8 (8.4-10.2) mg/dL Assessment and Plan Patient with right-sided empyema and loculations. Failure of IR to drain fluid may not of been because of the thickness of the fluid because of multiple loculations that are present. Patient does not want a larger bore chest tube at this time. Please continue IV antibiotics and observation. Consider immediate transfer to tertiary care center with general thoracic and VATS capability.
--- NOTE | 2022-02-07 14:31 | Progress Note ---
Assessment and Plan Assessment and plan: #Community-acquired pneumonia #Parapneumonic effusion #Sepsis secondary to pneumonia-improving WBC count normalized; T max 101.1 Continue Rocephin 1 g daily and p.o. azithromycin 500 mg daily x5 days for community-acquired pneumonia. Thoracentesis unable to be performed; patient likely has longstanding loculations and will need higher level of care for VATs - patient declines large bore chest tube at this time - [place] declined patient for transfer; pending [facility] Pulmonology & General surgery consulted, both agree patient would be better serviced with Thoracic surgery intervention #Elevated D-dimer D-dimer 995 CT angio chest negative for pulmonary embolism. Possible inflammatory marker. Ordering bilateral lower extremity venous Dopplers to rule out DVT. #Nonanion gap metabolic acidosisresolved Likely secondary to infection in the setting of right pleural effusion. Continue to monitor. #Elevated transaminasesimproving ALT 95--> 58 Continue to monitor. No need for medical intervention at this time. #Hyponatremiaresolved #Hypokalemiaresolved -will continue to replete and monitor #Mild protein caloric malnutrition Albumin 3.6 Starting dietary supplementation #Advanced care planning -Disease education conducted, care plan discussed, diagnoses discussed, prognosis discussed, and patient acknowledges understanding with care plan -Time: +30 min History Interval history: No acute events overnight. Patient reports improvement in shortness of breath and overall wellbeing. We discussed the need for chest tube insertion versus transfer for thoracic surgery intervention. Patient would not like for chest tube to be placed at this time. Discussed pulmonology and general surgery consult with patient. Hospitalist Physical - Physical exam Narrative exam: GENERAL: Well-developed well-nourished. In no acute distress. HEENT: Normocephalic. Atraumatic. NECK: Supple. CHEST/LUNGS: Decreased breath sounds in right lower lobe. Left lung CTA on RA HEART/CARDIOVASCULAR: RRR. No murmur, rubs or gallops appreciated. ABDOMEN: +BS. NT/ND. SKIN: No rashes noted. NEURO: No focal motor deficit. Follows all commands and is ambulatory. MUSCULOSKELETAL: No joint effusion EXTREMITIES: No cyanosis, clubbing or edema. PSYCH: Cooperative. - Constitutional Vitals: Temp Pulse Resp BP Pulse Ox 99.6 F 94 H 16 124/80 94 02/07/22 11:48 02/07/22 11:48 02/07/22 11:48 02/07/22 11:48 02/07/22 11:48 General appearance: Present: no acute distress, well-nourished HEART Score - HEART Score Troponin: Troponin T < 0.010 ng/mL (0.00-0.029) 02/04/22 08:29 Results - Labs CBC & Chem 7: 02/06/22 04:12 02/07/22 05:44 Labs: Laboratory Last Values WBC 10.8 K/mm3 (4.5-11.0) 02/06/22 04:12 RBC 4.65 M/mm3 (3.65-5.03) 02/06/22 04:12 Hgb 13.5 gm/dl (11.8-15.2) 02/06/22 04:12 Hct 41.4 % (35.5-45.6) 02/06/22 04:12 MCV 89 fl (84-94) 02/06/22 04:12 MCH 29 pg (28-32) 02/06/22 04:12 MCHC 33 % (32-34) 02/06/22 04:12 RDW 13.3 % (13.2-15.2) 02/06/22 04:12 Plt Count 200 K/mm3 (140-440) 02/06/22 04:12 Lymph % (Auto) 17.2 % (13.4-35.0) 02/06/22 04:12 [place] % (Auto) 9.9 % (0.0-7.3) H 02/06/22 04:12 Eos % (Auto) 0.1 % (0.0-4.3) 02/06/22 04:12 Baso % (Auto) 0.2 % (0.0-1.8) 02/06/22 04:12 Lymph # (Auto) 1.9 K/mm3 (1.2-5.4) 02/06/22 04:12 Dickinson # (Auto) 1.1 K/mm3 (0.0-0.8) H 02/06/22 04:12 Eos # (Auto) 0.0 K/mm3 (0.0-0.4) 02/06/22 04:12 Baso # (Auto) 0.0 K/mm3 (0.0-0.1) 02/06/22 04:12 Seg Neutrophils % 72.6 % (40.0-70.0) H 02/06/22 04:12 Seg Neutrophils # 7.8 K/mm3 (1.8-7.7) H 02/06/22 04:12 PT 14.6 Sec. (12.2-14.9) 02/06/22 09:04 INR 1.03 (0.87-1.13) 02/06/22 09:04 D-Dimer 995.34 ng/mlDDU (0-234) H 02/04/22 08:29 Sodium 138 mmol/L (137-145) 02/07/22 05:44 Potassium 3.8 mmol/L (3.6-5.0) 02/07/22 05:44 Chloride 102.3 mmol/L (98-107) 02/07/22 05:44 Carbon Dioxide 25 mmol/L (22-30) 02/07/22 05:44 Anion Gap 15 mmol/L 02/07/22 05:44 BUN 10 mg/dL (9-20) 02/07/22 05:44 Creatinine 0.9 mg/dL (0.8-1.3) 02/07/22 05:44 Estimated GFR > 60 ml/min 02/07/22 05:44 BUN/Creatinine Ratio 11 % 02/07/22 05:44 Glucose 106 mg/dL (75-100) H 02/07/22 05:44 Lactic Acid 1.00 mmol/L (0.7-2.0) 02/04/22 08:29 Calcium 8.8 mg/dL (8.4-10.2) 02/07/22 05:44 Total Bilirubin 0.40 mg/dL (0.1-1.2) 02/05/22 04:06 AST 13 units/L (5-40) 02/05/22 04:06 ALT 58 units/L (7-56) H 02/05/22 04:06 Alkaline Phosphatase 85 units/L (35-129) 02/05/22 04:06 Troponin T < 0.010 ng/mL (0.00-0.029) 02/04/22 08:29 Total Protein 7.0 g/dL (6.3-8.2) 02/05/22 04:06 Albumin 3.6 g/dL (3.9-5) L 02/05/22 04:06 Albumin/Globulin Ratio 1.1 % 02/05/22 04:06 Lipase 8 units/L (13-60) L 02/04/22 08:29 Urine Color [place] (Yellow) 02/04/22 Unknown Urine Turbidity Clear (Clear) 02/04/22 Unknown Urine pH 5.0 (5.0-7.0) 02/04/22 Unknown Ur Specific [place] 1.031 (1.003-1.030) H 02/04/22 Unknown Urine Protein 100 mg/dl mg/dL (Negative) 02/04/22 Unknown Urine Glucose (UA) Neg mg/dL (Negative) 02/04/22 Unknown Urine Ketones 20 mg/dL (Negative) 02/04/22 Unknown Urine Blood Mod (Negative) 02/04/22 Unknown Urine Nitrite Neg (Negative) 02/04/22 Unknown Urine Bilirubin Neg (Negative) 02/04/22 Unknown Urine Urobilinogen 4.0 mg/dL (<2.0) 02/04/22 Unknown Ur Leukocyte Esterase Neg (Negative) 02/04/22 Unknown Urine WBC (Auto) 7.0 /HPF (0.0-6.0) H 02/04/22 Unknown Urine RBC (Auto) 20.0 /HPF (0.0-6.0) 02/04/22 Unknown Urine Mucus 3+ /HPF 02/04/22 Unknown Urine Sperm Few /HPF ([employer]MENT[employer] S[employer] TE[employer]ER) 02/04/22 Unknown SARS-CoV-2 (PCR) Negative (Negative) 02/04/22 10:00 Microbiology: Microbiology 02/04/22 08:29 Peripheral/Venous Blood Culture - Preliminary NO GROWTH AFTER 72 HOURS 02/04/22 08:29 Peripheral/Venous Blood Culture - Preliminary NO GROWTH AFTER 72 HOURS Britton/IV: Voiding Method Urinal Active Medications - Current Medications Current Medications: Generic Name Dose Route Start Last Admin Trade Name Freq PRN Reason Stop Dose Admin Acetaminophen 650 mg 02/04/22 15:41 02/06/22 22:30 Acetaminophen 325 Mg Tab PO 650 mg Q4H PRN Administration Pain MILD(1-3)/Fever >100.5/MOTA Azithromycin 500 mg in 250 mls @ 250 mls/hr 02/04/22 16:00 02/06/22 16:02 Zithromax/Ns IV 02/09/22 15:59 250 mls/hr Q24H NATHAN Administration Ceftriaxone Sodium 2 gm in 100 mls @ 200 mls/hr 02/04/22 16:00 02/07/22 09:02 Rocephin/Ns 2 Gm/100 Ml IV 02/09/22 15:59 200 mls/hr Q24HR NATHAN Administration Protocol Metoclopramide HCl 10 mg 02/04/22 15:41 Metoclopramide 10 Mg/2 Ml Inj IV Q6H PRN Nausea And Vomiting Morphine Sulfate 2 mg 02/04/22 15:41 02/04/22 20:30 Morphine 2 Mg/1 Ml Inj IV 2 mg Q4H PRN Administration Pain, Moderate (4-6) Ondansetron HCl 4 mg 02/04/22 15:41 Ondansetron 4 Mg/2 Ml Inj IV Q8H PRN Nausea And Vomiting Oxycodone/Acetaminophen 1 tab 02/04/22 15:41 02/07/22 06:11 Oxycodone /Acetaminophen 5-325mg Tab PO 1 tab Q6H PRN Administration Pain, Moderate (4-6) Sodium Chloride 10 ml 02/04/22 22:00 02/07/22 09:03 Sodium Chloride 0.9% 10 Ml Flush Syringe IV 10 ml BID NATHAN Administration Sodium Chloride 10 ml 02/04/22 15:41 Sodium Chloride 0.9% 10 Ml Flush Syringe IV PRN PRN LINE FLUSH
[2022-02-07] MEDS: AZITHROMYCIN/NS 500 MG/250 ML 500 MG/250 ML BAG IV SCH (15:35)
[2022-02-07] MEDS: ACETAMINOPHEN 325 MG TAB PO PRN (22:16)
[2022-02-07] MEDS: guaiFENesin DM 200/20 MG ORAL LIQD 10 ML PO PRN (22:17)
[2022-02-08] MEDS: oxyCODONE /ACETAMINOPHEN 5-325MG TAB PO PRN ×3 (05:25→22:26)
[2022-02-08] MEDS: guaiFENesin DM 200/20 MG ORAL LIQD 10 ML PO PRN ×3 (05:25→22:27)
[2022-02-08] MEDS: cefTRIAXone/NS 2 GM/100 ML 2 GM/100 ML BAG IV SCH (09:31)
--- NOTE | 2022-02-08 12:37 | Progress Note ---
Assessment and Plan Continues to have decreased amounts of shortness of breath. Patient states that he was told he will be transferred to [place] for thoracic surgery evaluation later today. Subjective Date of service: 02/08/22 Patient Reports: Positive: no new complaints, feels better Narrative: Continues to have decreased amounts of shortness of breath. Patient states that he was told he will be transferred to [place] for thoracic surgery evaluation later today. Objective Vital Signs - 12hr 02/08/22 02/08/22 04:02 10:00 Temperature 99.5 F Pulse Rate 99 H Respiratory 18 Rate Blood Pressure 122/71 O2 Sat by Pulse 92 96 Oximetry - Labs 02/06/22 04:12 02/07/22 05:44
--- NOTE | 2022-02-08 14:03 | Progress Note ---
Assessment and Plan Assessment and plan: #Community-acquired pneumonia #Parapneumonic effusion #Sepsis secondary to pneumonia-improving WBC count normalized; T max 102.8 Continue Rocephin 1 g daily and p.o. azithromycin 500 mg daily x5 days for community-acquired pneumonia. 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 Cancino, Thoracic surgeon at [facility] who agreed to evaluate the patient; transfer initiation has begun #Elevated D-dimer D-dimer 995 CT angio chest negative for pulmonary embolism. Possible inflammatory marker. Ordering bilateral lower extremity venous Dopplers to rule out DVT. #Nonanion gap metabolic acidosisresolved Likely secondary to infection in the setting of right pleural effusion. Continue to monitor. #Elevated transaminasesimproving ALT 95--> 58 Continue to monitor. No need for medical intervention at this time. #Hyponatremiaresolved #Hypokalemiaresolved -will continue to replete and monitor #Mild protein caloric malnutrition Albumin 3.6 Starting dietary supplementation #Advanced care planning -Disease education conducted, care plan discussed, diagnoses discussed, prognosis discussed, and patient acknowledges understanding with care plan -Time: +30 min History Interval history: No acute events overnight. Patient continues to have shortness of breath. Met with patient at bedside several times today. Was updated about possibility of being transferred to [place] for thoracic surgery sometime today. Patient agreed. Hospitalist Physical - Physical exam Narrative exam: GENERAL: Well-developed well-nourished. In no acute distress. HEENT: Normocephalic. Atraumatic. CHEST/LUNGS: Decreased breath sounds in right lower lobe. Left lung CTA on RA HEART/CARDIOVASCULAR: RRR. No murmur, rubs or gallops appreciated. ABDOMEN: +BS. NT/ND. NEURO: No focal motor deficit. Follows all commands and is ambulatory. MUSCULOSKELETAL: No joint effusion EXTREMITIES: No cyanosis, clubbing or edema. PSYCH: Cooperative. - Constitutional Vitals: Temp Pulse Resp BP Pulse Ox 98.8 F 94 H 22 117/73 93 02/08/22 10:49 02/08/22 10:49 02/08/22 10:49 02/08/22 10:49 02/08/22 10:49 General appearance: Present: no acute distress, well-nourished HEART Score - HEART Score Troponin: Troponin T < 0.010 ng/mL (0.00-0.029) 02/04/22 08:29 Results - Labs CBC & Chem 7: 02/06/22 04:12 02/07/22 05:44 Labs: Laboratory Last Values WBC 10.8 K/mm3 (4.5-11.0) 02/06/22 04:12 RBC 4.65 M/mm3 (3.65-5.03) 02/06/22 04:12 Hgb 13.5 gm/dl (11.8-15.2) 02/06/22 04:12 Hct 41.4 % (35.5-45.6) 02/06/22 04:12 MCV 89 fl (84-94) 02/06/22 04:12 MCH 29 pg (28-32) 02/06/22 04:12 MCHC 33 % (32-34) 02/06/22 04:12 RDW 13.3 % (13.2-15.2) 02/06/22 04:12 Plt Count 200 K/mm3 (140-440) 02/06/22 04:12 Lymph % (Auto) 17.2 % (13.4-35.0) 02/06/22 04:12 [place]le % (Auto) 9.9 % (0.0-7.3) H 02/06/22 04:12 Eos % (Auto) 0.1 % (0.0-4.3) 02/06/22 04:12 Baso % (Auto) 0.2 % (0.0-1.8) 02/06/22 04:12 Lymph # (Auto) 1.9 K/mm3 (1.2-5.4) 02/06/22 04:12 Cottle # (Auto) 1.1 K/mm3 (0.0-0.8) H 02/06/22 04:12 Eos # (Auto) 0.0 K/mm3 (0.0-0.4) 02/06/22 04:12 Baso # (Auto) 0.0 K/mm3 (0.0-0.1) 02/06/22 04:12 Seg Neutrophils % 72.6 % (40.0-70.0) H 02/06/22 04:12 Seg Neutrophils # 7.8 K/mm3 (1.8-7.7) H 02/06/22 04:12 PT 14.6 Sec. (12.2-14.9) 02/06/22 09:04 INR 1.03 (0.87-1.13) 02/06/22 09:04 D-Dimer 995.34 ng/mlDDU (0-234) H 02/04/22 08:29 Sodium 138 mmol/L (137-145) 02/07/22 05:44 Potassium 3.8 mmol/L (3.6-5.0) 02/07/22 05:44 Chloride 102.3 mmol/L (98-107) 02/07/22 05:44 Carbon Dioxide 25 mmol/L (22-30) 02/07/22 05:44 Anion Gap 15 mmol/L 02/07/22 05:44 BUN 10 mg/dL (9-20) 02/07/22 05:44 Creatinine 0.9 mg/dL (0.8-1.3) 02/07/22 05:44 Estimated GFR > 60 ml/min 02/07/22 05:44 BUN/Creatinine Ratio 11 % 02/07/22 05:44 Glucose 106 mg/dL (75-100) H 02/07/22 05:44 Lactic Acid 1.00 mmol/L (0.7-2.0) 02/04/22 08:29 Calcium 8.8 mg/dL (8.4-10.2) 02/07/22 05:44 Total Bilirubin 0.40 mg/dL (0.1-1.2) 02/05/22 04:06 AST 13 units/L (5-40) 02/05/22 04:06 ALT 58 units/L (7-56) H 02/05/22 04:06 Alkaline Phosphatase 85 units/L (35-129) 02/05/22 04:06 Troponin T < 0.010 ng/mL (0.00-0.029) 02/04/22 08:29 Total Protein 7.0 g/dL (6.3-8.2) 02/05/22 04:06 Albumin 3.6 g/dL (3.9-5) L 02/05/22 04:06 Albumin/Globulin Ratio 1.1 % 02/05/22 04:06 Lipase 8 units/L (13-60) L 02/04/22 08:29 Urine Color Toma (Yellow) 02/04/22 Unknown Urine Turbidity Clear (Clear) 02/04/22 Unknown Urine pH 5.0 (5.0-7.0) 02/04/22 Unknown Ur Specific [place] 1.031 (1.003-1.030) H 02/04/22 Unknown Urine Protein 100 mg/dl mg/dL (Negative) 02/04/22 Unknown Urine Glucose (UA) Neg mg/dL (Negative) 02/04/22 Unknown Urine Ketones 20 mg/dL (Negative) 02/04/22 Unknown Urine Blood Mod (Negative) 02/04/22 Unknown Urine Nitrite Neg (Negative) 02/04/22 Unknown Urine Bilirubin Neg (Negative) 02/04/22 Unknown Urine Urobilinogen 4.0 mg/dL (<2.0) 02/04/22 Unknown Ur Leukocyte Esterase Neg (Negative) 02/04/22 Unknown Urine WBC (Auto) 7.0 /HPF (0.0-6.0) H 02/04/22 Unknown Urine RBC (Auto) 20.0 /HPF (0.0-6.0) 02/04/22 Unknown Urine Mucus 3+ /HPF 02/04/22 Unknown Urine Sperm Few /HPF (INTERIOR DESIGNER) 02/04/22 Unknown SARS-CoV-2 (PCR) Negative (Negative) 02/04/22 10:00 Microbiology: Microbiology 02/04/22 08:29 Peripheral/Venous Blood Culture - Preliminary NO GROWTH AFTER 4 DAYS 02/04/22 08:29 Peripheral/Venous Blood Culture - Preliminary NO GROWTH AFTER 4 DAYS Britton/IV: Voiding Method Toilet Active Medications - Current Medications Current Medications: Generic Name Dose Route Start Last Admin Trade Name Freq PRN Reason Stop Dose Admin Acetaminophen 650 mg 02/04/22 15:41 02/07/22 22:16 Acetaminophen 325 Mg Tab PO 650 mg Q4H PRN Administration Pain MILD(1-3)/Fever >100.5/MTOA Guaifenesin 10 ml 02/07/22 21:40 02/08/22 05:25 Guaifenesin Dm 200/20 Mg Oral Liqd 10 Ml PO 10 ml Q6H PRN Administration Cough Azithromycin 500 mg in 250 mls @ 250 mls/hr 02/04/22 16:00 02/07/22 15:35 Zithromax/Ns IV 02/09/22 15:59 250 mls/hr Q24H NATHAN Administration Ceftriaxone Sodium 2 gm in 100 mls @ 200 mls/hr 02/04/22 16:00 02/08/22 09:31 Rocephin/Ns 2 Gm/100 Ml IV 02/09/22 15:59 200 mls/hr Q24HR NATHAN Administration Protocol Metoclopramide HCl 10 mg 02/04/22 15:41 Metoclopramide 10 Mg/2 Ml Inj IV Q6H PRN Nausea And Vomiting Morphine Sulfate 2 mg 02/04/22 15:41 02/04/22 20:30 Morphine 2 Mg/1 Ml Inj IV 2 mg Q4H PRN Administration Pain, Moderate (4-6) Ondansetron HCl 4 mg 02/04/22 15:41 Ondansetron 4 Mg/2 Ml Inj IV Q8H PRN Nausea And Vomiting Oxycodone/Acetaminophen 1 tab 02/04/22 15:41 02/08/22 05:25 Oxycodone /Acetaminophen 5-325mg Tab PO 1 tab Q6H PRN Administration Pain, Moderate (4-6) Sodium Chloride 10 ml 02/04/22 22:00 02/08/22 09:31 Sodium Chloride 0.9% 10 Ml Flush Syringe IV 10 ml BID NATHAN Administration Sodium Chloride 10 ml 02/04/22 15:41 Sodium Chloride 0.9% 10 Ml Flush Syringe IV PRN PRN LINE FLUSH
[2022-02-08] MEDS: AZITHROMYCIN/NS 500 MG/250 ML 500 MG/250 ML BAG IV SCH (16:09)
[2022-02-08 22:43] VITALS: BP 130/86
--- NOTE | 2022-02-09 07:33 | Discharge Summary ---
Providers - Providers Date of Admission: 02/04/22 17:04 Date of discharge: 02/08/22 Attending physician: NEREIDA BROWN MD 02/04/22 15:41 Consult to Physician [CONS] Routine Comment: Consulting Provider: SANDRO MIKE Physician Instructions: Reason For Exam: Right pleural effusion 02/07/22 09:03 Consult to Physician [CONS] Routine Comment: Consulting Provider: KELSI RIVERA Physician Instructions: Reason For Exam: possible empyema Primary care physician: MAIN CLINTON Hospitalization Reason for admission: Pneumonia Condition: Stable Hospital course: 41-year-old male with no significant past medical history who presented with 2 to 3 days of sharp infra axillary pleuritic chest pain. He was found to be febrile in the ED. Chest x-ray showed a dense consolidation/effusion in the right lung. CT angiogram of the chest showed no definite obstructing central pulmonary embolism, but did show right middle and lower lobe lung atelectasis with effusion. No acute abdominal findings were found on right upper quadrant ultrasound and abdominal CT scan. He was admitted for management of pneumonia with parapneumonic effusion. IR attempted thoracentesis unsuccessfully. Pulmonology and general surgery were consulted for further evaluation. Recommendation was made for transfer for thoracic surgery evaluation for VATS. Once the patient was accepted to [place], he was transferred for further care. Disposition: 02 [facility]ORT TERM [facility] Final Discharge Diagnosis (Prints w/discharge instructions): Community-acquired pneumonia. Parapneumonic effusion. Sepsis secondary to pneumonia. Elevated D- dimer. Anion gap metabolic acidosis. Elevated transaminases. Hyponatremia. Hypokalemia. Mild protein calorie malnutrition Time spent for discharge: 35 minutes Core Measure Documentation - Palliative Care Palliative Care/ Comfort Measures: Not Applicable - Core Measures Any of the following diagnoses?: none Exam - Physical Exam Narrative exam: GENERAL: Well-developed well-nourished. In no acute distress. HEENT: Normocephalic. Atraumatic. CHEST/LUNGS: Decreased breath sounds in right lower lobe. Left lung CTA on RA HEART/CARDIOVASCULAR: RRR. No murmur, rubs or gallops appreciated. ABDOMEN: +BS. NT/ND. NEURO: No focal motor deficit. Follows all commands and is ambulatory. MUSCULOSKELETAL: No joint effusion EXTREMITIES: No cyanosis, clubbing or edema. PSYCH: Cooperative. - Constitutional Vitals: Temp Pulse Resp BP Pulse Ox 99.6 F 98 H 18 130/86 98 02/08/22 20:27 02/08/22 20:27 02/08/22 20:27 02/08/22 20:27 02/08/22 22:00 Plan Assessment: Patient is a 41-year-old male with no significant past medical history who presented with 2 to 3 days of sharp infra axillary pleuritic chest pain. He was found to be febrile in the ED. Chest x-ray showed a dense consolidation/effusion in the right lung. CT angiogram of the chest showed no definite obstructing central pulmonary embolism, but did show right middle and lower lobe lung atelectasis with effusion. No acute abdominal findings were found on right upper quadrant ultrasound and abdominal CT scan. He was admitted for management of pneumonia with parapneumonic effusion. IR attempted thoracentesis unsuccessfully. Pulmonology and general surgery were consulted for further evaluation. Recommendation was made for transfer for thoracic surge ry evaluation for VATS. Once the patient was excepted to an outside facility he was transferred for further care. Follow up with: MAIN CLINTON MD [Primary Care Provider] - 7 Days
== END 2022-02-09 00:34 | disposition short-term general hospital (02) | DRG 871 ==
LOC: ED 21:23 → 3A 02-04 17:04
PROVIDERS: ADMIT Internal Medicine; ATTEND Student in an Organized Health Care Education/Training Program
DX: A41.89 Other specified sepsis (principal); J18.9 Pneumonia, unspecified organism; E87.2 Acidosis; E87.1 Hypo-osmolality and hyponatremia; J90 Pleural effusion, not elsewhere classified; E44.1 Mild protein-calorie malnutrition; Z68.25 Body mass index [BMI] 25.0-25.9, adult; E87.6 Hypokalemia; Z20.822 Contact with and (suspected) exposure to COVID-19
CPT/HCPCS: 32555; 36415; 71045; 71275; 74177; 76705; 80048; 80053; 81001; 82140; 83690; 84484; 85025; 85379; 85610; 87040; 93005; 94760; 99406; G0378; J0456; J0696; J1170; J1644; J1956; J2270; J2405; J2930; J7030; Q9967; U0003